=== PATIENT | female | born 1965 | race Caucasian/White ===

== ENCOUNTER → 2017-10-22 | Day surgery (SDC) | payer BC ==
[~2017-10-22] MED LIST: CRESTOR10 MG PO; FENTANYL CITRATE/PF 100MCG/2 ML INJ ONE; FUROSEMIDE40 MG PO; HYOSCYAMINE SULFATE 0.5 MG/ML AMP ONE; LIDOCAINE HCL 2% LOCAL INJ 5 ML SDV VIAL INJ ONE; LISINOPRIL10 MG PO; MIDAZOLAM HCL 2 MG/2 ML VIAL ONE; PROPOFOL IV EMULSION 10 MG/ML 50 ML VIAL ONE; XANAX0.25 MG PO
--- NOTE | 2017-10-23 00:54 | Operative Report ---
DATE OF PROCEDURE: October 22, 2017 PROCEDURE PERFORMED: Colonoscopy and a polypectomy note. REFERRING PHYSICIAN: Dr. Mandi Gonzáles INDICATIONS FOR COLONOSCOPY: Colorectal cancer screening. MEDICATION: Patient was done under MAC. Please see anesthesiologist note. PROCEDURE IN DETAIL: With the patient in left lateral decubitus position, flexible fiberoptic Olympus colonoscope was inserted into the rectum with ease, and advanced all the way to the cecum. Two minute polyps were hot biopsied from the cecum. The ascending, transverse, and descending appeared to be within normal limits. Two polyps were hot biopsied from the sigmoid. The rectum appeared to be within normal limits. The scope was then retroflexed into the distal rectum, and small internal hemorrhoids were noted, none of which was actively bleeding. The scope was then straightened out and was subsequently withdrawn. Patient tolerated the procedure well. IMPRESSION: 1. Cecal polyp, hot biopsied, x2. 2. Sigmoid colon polyps x2, hot biopsied. 3. Internal hemorrhoids, none actively bleeding. PLAN: Follow up histology. Initiate high-fiber low-fat diet. Initiate high-fiber supplement. Patient will need a followup colonoscopy in 3 years. Job#: [id number] cc:MANDI GONZÁLES DO
== END | disposition home or self-care (01) ==
LOC: ENDO 07:00
PROVIDERS: ATTEND Internal Medicine Gastroenterology
DX: Z12.11 Encounter for screening for malignant neoplasm of colon (principal); K63.5 Polyp of colon; D17.5 Benign lipomatous neoplasm of intra-abdominal organs; K64.8 Other hemorrhoids; K59.00 Constipation, unspecified; K62.5 Hemorrhage of anus and rectum; F41.9 Anxiety disorder, unspecified; I10 Essential (primary) hypertension; Z01.810 Encounter for preprocedural cardiovascular examination; Z68.37 Body mass index [BMI] 37.0-37.9, adult
CPT/HCPCS: 45384; 93005; J1980; J2001; J2250

== ENCOUNTER 2017-10-25 08:50 | Observation (INO) | payer BC ==
[~2017-10-25] VITALS: Ht 167.6 cm; Wt 74.5 kg
[~2017-10-25 08:50] MED LIST changes: -FENTANYL CITRATE/PF 100MCG/2 ML INJ ONE; -HYOSCYAMINE SULFATE 0.5 MG/ML AMP ONE; -LIDOCAINE HCL 2% LOCAL INJ 5 ML SDV VIAL INJ ONE; -MIDAZOLAM HCL 2 MG/2 ML VIAL ONE; -PROPOFOL IV EMULSION 10 MG/ML 50 ML VIAL ONE
--- OUTSIDE RECORDS SUMMARY | 2017-10-25 08:52 | XMS REPORT | Clinical Summary ---
Author Author [facility] Organization [facility] Address Unknown Phone Unavailable Care Team Providers Care Senior Design Engineer Name Role Phone Shai Lu MD PCP Allergies Not on File Current Medications Not on file Active Problems Not on file Encounters Date Type Specialty Care Team Description 11/17/2016 [facility] Radiology George Waite MD Screening for Encounter osteoporosis 11/10/2016 George Ramirez MD Screening for Orders osteoporosis (Primary Dx) 11/09/2016 [facility] Radiology George Waite MD Encounter for screening Encounter mammogram for malignant neoplasm of breast 11/05/2016 [facility] Ba MD Encounter for screening Orders mammogram for malignant neoplasm of breast (Primary Dx) after 10/24/2016 Social History Tobacco Use Types Packs/Day Years Used Date Never Assessed Sex Assigned at Date Recorded Not on file Last Filed Vital Signs Not on file Plan of Treatment Health Maintenance Due Date Last Done Comments PAP SMEAR 1985 COLONOSCOPY 2014 INFLUENZA VACCINE 03/29/2017 MAMMOGRAM 11/09/2018 11/09/2016, 10/15/2015 Results * Bone Density (11/17/2016 8:34 AM) Specimen Performing Laboratory [facility] [address] [place] [address] Narrative EXAMINATION:BONE DENSITY CLINICAL HISTORY:SCREENING FOR OSTEOPOROSIS Order diagnosis - Encounter for screening for osteoporosis COMPARISON:None. The results of this study expressed as bone mineral density (BMD) were as follows: AP spine (L1-L4) BMD: 1.265 g/cm2 T-Score: 1.2 WHO Classification:Normal Dual Femur (Total Mean): BMD: 0.836 g/cm2 T-Score:- 1.4 WHO Classification:Osteopenia IMPRESSION: Bone mineral density results as described.Osteopenia A copy of this scans including a report detailing these results will follow. Note: The world health organization (WHO) has classified the patient's T-score as follows: Above (-1) as normal (-1) to (-2.5) as low (osteopenia) Below (-2.5) as abnormally low (osteoporosis, increased fracture risk) Dual femur FRAX: Risk factors: None. 10 year probability of fracture: 1.Major osteoporotic: 5.5% 2.Hip: 0.4% 3.Based on dual femur left neck BMD Thank you for allowing us to participate in the care of your patient. [id number] Procedure Note Interface, Radiology Results Incoming - 11/17/2016 8:39 AM CDT EXAMINATION: BONE DENSITY CLINICAL HISTORY: SCREENING FOR OSTEOPOROSIS Order diagnosis - Encounter for screening for osteoporosis COMPARISON: None. The results of this study expressed as bone mineral density (BMD) were as follows: AP spine (L1-L4) BMD: 1.265 g/cm2 T-Score: 1.2 WHO Classification: Normal Dual Femur (Total Mean): BMD: 0.836 g/cm2 T-Score: - 1.4 WHO Classification: Osteopenia IMPRESSION: Bone mineral density results as described. Osteopenia A copy of this scans including a report detailing these results will follow. Note: The world health organization (WHO) has classified the patient's T-score as follows: Above (-1) as normal (-1) to (-2.5) as low (osteopenia) Below (-2.5) as abnormally low (osteoporosis, increased fracture risk) Dual femur FRAX: Risk factors: None. 10 year probability of fracture: 1. Major osteoporotic: 5.5% 2. Hip: 0.4% 3. Based on dual femur left neck BMD Thank you for allowing us to participate in the care of your patient. [id number] * Mammo Breast Screen Tomosynthesis Bilateral (11/09/2016 8:40 AM) Specimen Performing Laboratory [facility] [address] [place] [address] Narrative EXAMINATION:MAMMO BREAST SCREEN TOMOSYNTHESIS BILATERAL11/09/2016 Computer-assisted detection was utilized in the interpretation of this exam. COMPARISONS:10/15/2015 INDICATION:51 year-old female who presents for annual evaluation. Laterally implants placed in 2003. FINDINGS: There is scattered fatty and fibroglandular tissue. There are no suspicious mammographic findings. Bilateral subpectoral saline implants are present.The presence of implants obscures evaluation of the posterior parenchyma. IMPRESSION: No mammographic evidence of malignancy. In the absence of any clinical change, continued routine annual mammographic surveillance per ACS guidelines is recommended. BI-RADS 2: BENIGN. [id number] Procedure Note Hm Interface, Radiology Results Incoming - 11/10/2016 3:01 PM CDT EXAMINATION: MAMMO BREAST SCREEN TOMOSYNTHESIS BILATERAL 11/09/2016 Computer-assisted detection was utilized in the interpretation of this exam. COMPARISONS: 10/15/2015 INDICATION: 51 year-old female who presents for annual evaluation. Laterally implants placed in 2003. FINDINGS: There is scattered fatty and fibroglandular tissue. There are no suspicious mammographic findings. Bilateral subpectoral saline implants are present. The presence of implants obscures evaluation of the posterior parenchyma. IMPRESSION: No mammographic evidence of malignancy. In the absence of any clinical change, continued routine annual mammographic surveillance per ACS guidelines is recommended. BI-RADS 2: BENIGN. [id number] after 10/24/2016 Insurance Payer Benefit Subscriber ID Type Phone Address Plan / Group BCBS BCBS xxxxxxxxxxxx PPO CHOICE PPO/[employer] PPO
[2017-10-25] MEDS ORDERED: SODIUM CHLORIDE 0.9% 1000ML 1,000 ML IV STA (09:05)
[2017-10-25] MEDS ORDERED: PANTOPRAZOLE 40 MG 10ML VIAL IV STA (09:05)
[2017-10-25 09:28] LABS: BASOPHILS # (AUTO) 0.1 (0.0-0.1); BASOPHILS % 0.8 % (0.0-1.0); EOSINOPHILS # (AUTO) 0.1 (0.0-0.4); EOSINOPHILS % 1.5 % (0.0-6.0); HEMATOCRIT 39.3 % (34.2-44.1); HEMOGLOBIN 13.7 g/dL (12.0-16.0); LYMPHOCYTES # (AUTO) 2.1 (1.0-3.2); LYMPHOCYTES % 25.1 % (18.0-39.1); MEAN CORPUSCULAR HEMOGLOBIN 30.5 pg (28-32); MEAN CORPUSCULAR HGB CONC 34.9 g/dL (31-35); MEAN CORPUSCULAR VOLUME 87.5 fL (81-99); MONOCYTES # (AUTO) 0.5 (0.2-0.8); MONOCYTES % 5.6 % (4.4-11.3); NEUTROPHILS # (AUTO) 5.7 (2.1-6.9); NEUTROPHILS % 66.5 % (38.7-80.0); PLATELET COUNT 270 x10e3/uL (140-360); RED BLOOD COUNT 4.49 x10e6/uL (3.6-5.1); RED CELL DISTRIBUTION WIDTH 13.2 % (11.7-14.4)
[2017-10-25 09:44] LABS: ALANINE AMINOTRANSFERASE 33 IU/L (0-55); ALBUMIN 4.6 g/dL (3.5-5.0); ALBUMIN/GLOBULIN RATIO 1.5 (0.8-2.0); ALKALINE PHOSPHATASE 70 IU/L (40-150); ANION GAP 15.6 mmol/L (8-16); BLOOD UREA NITROGEN 15 mg/dL (7-26); CALCIUM 9.6 mg/dL (8.4-10.2); CARBON DIOXIDE 24 mmol/L (22-29); CHLORIDE 104 mmol/L (98-107); CREATINE KINASE 92 IU/L (29-168); GLUCOSE 110 mg/dL (74-118); POTASSIUM 3.6 mmol/L (3.5-5.1); SODIUM 140 mmol/L (136-145)
--- NOTE | 2017-10-25 09:56 | Diagnostic Imaging Report ---
Examination: CT BRAIN WITHOUT CONTRAST History:Dizziness. Fall. Loss of consciousness. Comparison studies:Head CT performed August 18, 2016 Technique: Axial images were obtained from the skull base to the vertex. Coronal and sagittal images reconstructed from the axial data. Intravenous contrast: None Findings: Scalp: No abnormalities. Bones: No fractures, blastic or lytic lesions. Brain sulci: Appropriate for age. Ventricles: Normal in size and configuration. No hydrocephalus. Extra-axial space: No abnormalities. Parenchyma: No abnormal densities. No masses, hemorrhage, or acute or chronic cortical based vascular insults.. Sellar/suprasellar region: No abnormalities. Craniocervical junction: Patent foramen magnum. No Chiari one malformation. Incidental findings: None. Impression: No new or acute intracranial abnormalities. No change in prior head CT performed August 18, 2016. Signed by: Dr. Samantha Corey M.D. on 10/25/2017 9:52 AM
[2017-10-25 10:10] LABS: BUN/CREATININE RATIO 18 (6-25); CREATININE, SERUM 0.82 mg/dL (0.57-1.11); EST GLOMERULAR FILTRATION RATE > 60 ML/MIN (60-)
[2017-10-25] MEDS ORDERED: SODIUM CHLORIDE FLUSH 10 ML SYR INJ PRN (10:30)
--- OUTSIDE RECORDS SUMMARY | 2017-10-25 12:13 | XMS REPORT | Clinical Summary ---
Author Author [facility] Organization [facility] Address Unknown Phone Unavailable Care Team Providers Care Change Of Address Clerk Name Role Phone Shai Lu MD PCP Allergies Not on File Current Medications Not on file Active Problems Not on file Encounters Date Type Specialty Care Team Description 11/17/2016 [facility] Radiology George Waite MD Screening for Encounter osteoporosis 11/10/2016 George Ramirez MD Screening for Orders osteoporosis (Primary Dx) 11/09/2016 [facility] Radiology George Waite MD Encounter [...] Density (11/17/2016 8:34 AM) Specimen Performing Laboratory [facility] [address] [place] [address] Narrative EXAMINATION:BONE DENSITY CLINICAL HISTORY:SCREENING FOR OSTEOPOROSIS [...] participate in the care of your patient. [id number] Procedure Note Interface, Radiology Results Incoming - [...] participate in the care of your patient. [id number] * Mammo Breast Screen Tomosynthesis Bilateral (11/09/2016 8:40 AM) Specimen Performing Laboratory [facility] [address] [place] [address] Narrative EXAMINATION:MAMMO BREAST SCREEN TOMOSYNTHESIS BILATERAL11/09/2016 Computer-assisted [...] ACS guidelines is recommended. BI-RADS 2: BENIGN. [id number] Procedure Note Hm Interface, Radiology Results Incoming [...] ACS guidelines is recommended. BI-RADS 2: BENIGN. [id number] after 10/24/2016 Insurance Payer Benefit Subscriber ID Type Phone Address Plan / Group BCBS BCBS xxxxxxxxxxxx PPO CHOICE PPO/[employer] PPO
--- OUTSIDE RECORDS SUMMARY | 2017-10-25 12:13 | XMS REPORT ---
Author Author [facility] Address Unknown Phone Unavailable Care Team Providers Care Parent Aide Name Role Phone REBEL GALICIA Unavailable Unavailable Problems This patient has no known problems. Allergies, Adverse Reactions, Alerts This patient has no known allergies or adverse reactions. Medications This patient has no known medications. Results Test Description Test Time Test Comments Text Results Atomic Results Result Comments CT BRAIN [place] [address] Patient Name: VIV MEHTA MR #: [id number] : 1965 Age/Sex: 52/F Req #: [id number] Adm Physician: Ordered by: REBEL GALICIA MD Report #: [id number] Location: ER Room/Bed: Procedure: [id number] CT/CT BRAIN WO Exam Date: 10/25/17 Exam Time: 924 REPORT STATUS: Signed Examination: CT BRAIN WITHOUT CONTRAST History:Dizziness. Fall. Loss of consciousness. Comparison studies:Head CT performed August 18, 2016 Technique: Axial images were obtained from the skull base to the vertex. Coronal and sagittal images reconstructed from the axial data. Intravenous contrast: None Findings: Scalp: No abnormalities. Bones: No fractures, blastic or lytic lesions. Brain sulci : Appropriate for age. Ventricles: Normal in size and configuration. No hydrocephalus. Extra-axial space: No abnormalities. Parenchyma: No abnormal densities. No masses, hemorrhage, or acute or chronic cortical based vascular insults.. Sellar/suprasellar region: No abnormalities. Craniocervical junction: Patent foramen magnum. No Chiari one malformation. Incidental findings: None. Impression: No new or acute intracranial abnormalities. No change in prior head CT performed August 18, 2016. Signed by: Dr. Samantha Corey M.D. on 10/25/2017 9:52 AM Dictated By: SAMANTHA BRO MD 1 Transcribed By: IRIS on 10/25/17951 COPY TO: REBEL GALICIA MD
[2017-10-25 12:43] VITALS: BP 131/56
[2017-10-25 12:47] VITALS: BP 131/56
[2017-10-25 15:38] LABS: HEMATOCRIT 37.8 % (34.2-44.1); HEMOGLOBIN 12.9 g/dL (12.0-16.0)
[2017-10-25 16:52] VITALS: BP 119/57
[2017-10-25 19:15] VITALS: BP 119/66
[2017-10-25 20:00] VITALS: BP 119/66
[2017-10-25 22:32] LABS: HEMATOCRIT 34.9 % (34.2-44.1); HEMOGLOBIN 12.1 g/dL (12.0-16.0)
[2017-10-26] VITALS: BP 105/55
[2017-10-26 04:00] VITALS: BP 104/53
[2017-10-26 06:34] LABS: HEMATOCRIT 34.7 % (34.2-44.1); HEMOGLOBIN 11.9 g/dL (12.0-16.0)
[2017-10-26 06:55] VITALS: BP 126/74
[2017-10-26 07:54] VITALS: BP 126/74
[2017-10-26 11:23] LABS: HEMATOCRIT 33.2 % (34.2-44.1); HEMOGLOBIN 11.5 g/dL (12.0-16.0)
[2017-10-26 12:00] VITALS: BP 110/54
== END 2017-10-26 12:19 | disposition home or self-care (01) ==
LOC: ER 08:50 → EDBEDREQ 11:43 → IMCU 12:11
DX: K92.1 Melena (principal); S06.9X1A Unspecified intracranial injury with loss of consciousness of 30 minutes or less, initial encounter; W01.0XXA Fall on same level from slipping, tripping and stumbling without subsequent striking against object, initial encounter; Y93.89 Activity, other specified; Y92.012 Bathroom of single-family (private) house as the place of occurrence of the external cause; I10 Essential (primary) hypertension; F41.9 Anxiety disorder, unspecified; E78.5 Hyperlipidemia, unspecified; Z88.2 Allergy status to sulfonamides
CPT/HCPCS: 36415 ×2; 70450; 80053; 82550; 82553; 84484; 85014 ×2; 85018 ×2; 85025; 86850; 86900; 93005; 99284; G0378 ×2; J7030